=== PATIENT | female | born 1990 | race Hispanic/Latino ===

== ENCOUNTER 2016-10-27 14:02 | Outpatient (RCR) | payer BC ==
[~2016-10-27 14:02] MED LIST: ACHD5005 PO; CYCL5TAB11; DCS100C PO; DOXY100C55 PO; FLDR.1T PO; FRS325T PO; IBP600T1 PO; PREN1TAB71 PO; SMT80CT PO
== END 2016-12-23 | disposition home or self-care (01) ==
LOC: CARD 14:02
PROVIDERS: ATTEND Nurse Practitioner Family
DX: R00.2 Palpitations (principal)
CPT/HCPCS: 93225; 93226

== ENCOUNTER → 2016-10-30 | Outpatient (CLI) | payer BC | LOC: CARD 14:51 | PROVIDERS: ATTEND Nurse Practitioner Family | DX: R00.2 Palpitations (principal) | CPT/HCPCS: 93306 ==

== ENCOUNTER → 2016-12-13 | Outpatient (CLI) | payer BC | LOC: RAD 10:56 | PROVIDERS: ATTEND Internal Medicine Cardiovascular Disease | DX: I07.1 Rheumatic tricuspid insufficiency; R00.0 Tachycardia, unspecified; I34.0 Nonrheumatic mitral (valve) insufficiency; R00.2 Palpitations | CPT/HCPCS: 93017 ==

== ENCOUNTER → 2018-02-14 | Emergency (ER) | payer BC ==
[~2018-02-14] VITALS: Ht 154.9 cm; Wt 56.2 kg
[~2018-02-14] MED LIST changes: +KETOROLAC 30 MG/ML VIAL IM ONE; +PRD20T PO; +RX-TRAMADOL 50 MG (ULTRAM) TAB PPK#4 PO STA; +TRAM-42 PO; +predniSONE 20 MG TAB PO ONE
--- NOTE | 2018-02-14 12:05 | Diagnostic Imaging Report ---
INDICATION: Chest pain. COMPARISON: 06/05/2007. DISCUSSION: Two views of the chest were obtained. The heart and lungs are normal. No osseous abnormality. IMPRESSION: 1. Stable normal chest. Dictated by: Dictated on workstation # [id number]
--- NOTE | 2018-02-14 13:01 | ED General ---
General Chief Complaint: Chest Wall/Rib Pain Stated Complaint: CHEST PAIN, SOB Nursing Triage Note: PT PRESENTS TO ER WITH COMPLAINT OF CHEST WALL PAIN. STATES IT STARTED ON SUNDAY AND WENT TO [facility]. STATES SHE WAS IT WAS MUSCULAR AND GIVEN NAPROXEN. PT STATES SHE CAN FEEL A BUMP ON HER RIGHT UPPER CHEST AND STATES IT FEELS IT HAS WORSENED. Nursing Sepsis Screen: No Definite Risk Source of Information: Patient Exam Limitations: No Limitations History of Present Illness Date Seen by Provider: Feb 15, 2018 Time Seen by Provider: 11:25 Initial Comments Ellyn is a 28-year-old young lady who presents to the emergency room with complaints of pain and swelling in the right chest above the right breast that has been present for 4 days. She presented to [facility] a couple days ago and was assessed. Her symptoms were thought to be from a muscle strain at that time. She was started on naproxen. She has been taking naproxen but symptoms have been worsening. She reports pain with breathing, moving, and coughing. She feels like there is a lump in the area that has increased with time. It is painful to the touch. She denies any known injury. The pain did start on the same day as a workout but she cannot identify any specific injury or strain during the workout that caused the symptoms. She has since developed a subtle discomfort in the right arm as well. Allergies and Home Medications Allergies Coded Allergies: No Known Drug Allergies (Unverified , 09/05/08) Home Medications Docusate Sodium 100 Mg Cap, 100 MG PO BID Prescribed by: JEZ CORREIA on 11/04/12838 Ferrous Sulfate 325 Mg Tab, 325 MG PO BID WITH MEALS Prescribed by: JEZ CORREIA on 11/04/12838 Hydrocodone Bit/Acetaminophen 1 Tab Tablet, 2 TAB PO Q6HR PRN Prescribed by: JEZ CORREIA on 11/04/12838 Ibuprofen 600 Mg Tab, 600 MG PO Q6H PRN Prescribed by: JEZ CORREIA on 11/04/12838 Prednisone 20 Mg Tab, 1 TAB PO DAILY Prescribed by: REANNA NETTLES on 02/14/18 1302 Vit/Fe Fumarate/Fa 1 Each Tablet, 1 EACH PO DAILY, (Reported) Simethicone 80 Mg Chew, 80 MG PO BID Prescribed by: JEZ CORREIA on 11/04/12838 Tramadol HCl 50 Mg Tablet, 50 MG PO Q6H PRN for PAIN-MODERATE TO SEVERE Prescribed by: REANNA NETTLES on 02/14/18 1302 Patient Home Medication List Home Medication List Reviewed: Yes Review of Systems Review of Systems Constitutional: no symptoms reported EENTM: no symptoms reported Respiratory: see HPI Cardiovascular: no symptoms reported Gastrointestinal: no symptoms reported Genitourinary: no symptoms reported : No Musculoskeletal: see HPI Skin: no symptoms reported Psychiatric/Neurological: No Symptoms Reported Hematologic/Lymphatic: No Symptoms Reported Immunological/Allergic: no symptoms reported Past Zvpsipy-Uiaako-Fqmvqz Hx Past Med/Social Hx: Reviewed and Corrections made Patient Social History Alcohol Use: Denies Use Recreational Drug Use: No Smoking Status: Never a Smoker Recent Foreign Travel: No Contact w/Someone Who Travel: No Recent Infectious Disease Expo: No Recent Hopitalizations: No Immunizations Up To Date Tetanus Booster (TDap): More than 5yrs PED Vaccines UTD: Yes Past Medical History Surgeries: Yes Section Respiratory: No Cardiac: No Neurological: No Reproductive Disorders: No Gastrointestinal: No Musculoskeletal: No Endocrine: No Cancer: No Psychosocial: Yes Anxiety Integumentary: No Blood Disorders: Yes (low platelets, transfusion, anemia) Adverse Reaction/Blood Tranf: No Physical Exam Vital Signs Vital Signs - First Documented 02/14/18 09:44 Temp 98.0 Pulse 70 Resp 20 B/P (MAP) 106/70 (82) Pulse Ox 100 O2 Delivery Room Air Capillary Refill : Less Than 3 Seconds Height, Weight, BMI Height: 5'1.00" Weight: 124lbs. oz. 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 Norm as Tested Skin: Normal Color, Warm/Dry Progress/Results/Core Measures Suspected Sepsis Recent Fever Within 48 Hours: No Infection Criteria Present: None New/Unexplained Altered Menta: No Sepsis Screen: No Definite Risk SIRS Temperature:98.0 Pulse: 70 Respiratory Rate: 20 Blood Pressure 106 /70 Mean: 82 Results/Orders My Orders Orders - REANNA AREVALO MD Chest Pa/Lat (2 View) (02/14/18 11:32) Urine Bedside (02/14/18 11:32) Ketorolac Injection (Toradol Injection) (02/14/18 11:45) Prednisone Tablet (Deltasone Tablet) (02/14/18 13:00) Rx-Tramadol Hcl (Rx-Ultram) (02/14/18 12:57) Medications Given in ED Vital Signs/I&O Capillary Refill : Less Than 3 Seconds Blood Pressure Mean: 82 Point of Care Testing Urine -Bedside: Negative Progress Note : Progress Note Patient received a Toradol injection with some improvement in pain. She was sent home with a take-home packet of tramadol. We discussed treatment options which included prednisone which she gladly accepted. Chest x-ray showed no acute abnormalities. See discharge instructions for further discussion. Diagnostic Imaging Diagonstic Imaging: Xray Plain Films/CT/US/NM/MRI: chest Comments Chest x-ray viewed by me and report reviewed. See report below: NAME: TOMASZ ROBERTO [facility] REC#: [id number] PT STATUS: REG ER : 1990 PHYSICIAN: REANNA AREVALO MD ADMIT DATE: 02/14/18/ER Signed Date of Exam: 02/14/18 CHEST PA/LAT (2 VIEW) INDICATION: Chest pain. COMPARISON: 06/05/2007. DISCUSSION: Two views of the chest were obtained. The heart and lungs are normal. No osseous abnormality. IMPRESSION: 1. Stable normal chest. Dictated by: Dictated on workstation # [id number] Dict: 02/14/18 1203 Trans: 02/14/182 Interpreted by: NABILA CARDENAS MD Electronically signed by: NABILA CARDENAS MD 02/14/18 1073 Departure Impression Primary Impression: Chest wall pain Disposition: 01 HOME, SELF-CARE Condition: Improved Departure-Patient Inst. Decision time for Depature: 12:58 Referrals: NO,LOCAL PHYSICIAN (PCP/Family) Primary Care Physician Patient Instructions: Chest Pain That Is Not Caused by the Heart (DC) Add. Discharge Instructions: You may continue taking naproxen up to 500 mg twice daily as your primary pain medication. Add Tylenol (acetaminophen) up to 650 mg every 6 hours as needed and/or Ultram as prescribed for additional pain relief. Follow-up with your primary care provider on Sunday if not improved. Return to the ER if symptoms worsen. Avoid strenuous activities or activities that worsen your pain until it resolves. All discharge instructions reviewed with patient and/or family. Voiced understanding. Scripts Tramadol HCl (Ultram) 50 Mg Tablet 50 MG PO Q6H PRN for PAIN-MODERATE TO SEVERE, #10 TAB Prov: REANNA AREVALO MD 02/14/18 Prednisone (Prednisone) 20 Mg Tab 1 TAB PO DAILY, #4 TAB Prov: REANNA AREVALO MD 02/14/18 REANNA AREVALO MD Feb 14, 2018 13:01
[2018-02-14 13:13] VITALS: BP 106/70
== END | disposition home or self-care (01) ==
LOC: EDUNIT# 09:11 → ER 09:13
DX: R07.89 Other chest pain (principal); F41.9 Anxiety disorder, unspecified; D64.9 Anemia, unspecified; Z79.52 Long term (current) use of systemic steroids; Z98.890 Other specified postprocedural states
CPT/HCPCS: 71046; 84703

== ENCOUNTER → 2021-08-16 | Outpatient (CLI) | payer BC ==
[~2021-08-16] MED LIST changes: -KETOROLAC 30 MG/ML VIAL IM ONE; -RX-TRAMADOL 50 MG (ULTRAM) TAB PPK#4 PO STA; -predniSONE 20 MG TAB PO ONE
--- NOTE | 2021-08-16 11:13 | Diagnostic Imaging Report ---
PROCEDURE: US Non-ob pelvis comp/trans. TECHNIQUE: Multiple realtime grayscale images were obtained of the pelvis in various projections endovaginally. Transabdominal imaging was also performed. INDICATION: Dyspareunia. Follow-up for IUD. Uterus measures 7.2 x 4.3 x 4.5 cm. IUD appears to be in good position in the endometrial cavity. Endometrium measures 4 mm. Right ovary measures 3 x 1.5 x 2 cm. Left ovary measures 3.5 x 1.7 x 2.5 cm. There is a 1.7 cm cyst in the right ovary with thickened wall and internal debris. There are follicular cysts bilaterally. IMPRESSION: 1. IUD appears in good position in the endometrial cavity. 2. The complex cyst right ovary likely representing hemorrhagic cyst measuring 1.7 cm. Dictated by: Dictated on workstation # [id number]
== END ==
LOC: RAD 10:00
PROVIDERS: ATTEND Obstetrics & Gynecology
DX: N83.201 Unspecified ovarian cyst, right side (principal)
CPT/HCPCS: 76830; 76856